=== PATIENT | male | born 1965 | race Caucasian/White ===

== ENCOUNTER 2018-04-10 10:51 | Outpatient (CLI) | payer MEDICARE, MEDICAID ==
[2018-04-10] VITALS (22 sets, daily range): BP systolic 113–144; BP diastolic 76–108
[~2018-04-10 10:51] MED LIST: NO HOME MEDS
== END 2018-04-10 23:59 | disposition home or self-care (01) ==
LOC: CARD DIAG 10:51
PROVIDERS: ATTEND Internal Medicine Cardiovascular Disease
DX: R42 Dizziness and giddiness (principal); F17.210 Nicotine dependence, cigarettes, uncomplicated
CPT/HCPCS: 93660

== ENCOUNTER 2021-02-02 09:39 | Emergency (ER) | payer MEDICARE, MEDICAID ==
[~2021-02-02] VITALS: Ht 177.8 cm; Wt 61.0 kg
[2021-02-02 09:59] VITALS: BP 124/79
[2021-02-02] MEDS ORDERED: ONDA4TAB6 PO (11:13)
[2021-02-02] MEDS ORDERED: LORA-269 PO (11:13)
== END 2021-02-02 11:23 | disposition home or self-care (01) ==
LOC: ER 09:39
DX: F10.20 Alcohol dependence, uncomplicated (principal); Z95.1 Presence of aortocoronary bypass graft; Z98.890 Other specified postprocedural states; Y90.9 Presence of alcohol in blood, level not specified
CPT/HCPCS: 99283

== ENCOUNTER 2021-02-08 16:47 | Emergency (ER) | payer MEDICARE, MEDICAID ==
[~2021-02-08] VITALS: Ht 177.8 cm; Wt 61.4 kg
[~2021-02-08 16:47] MED LIST changes: +LORA-269 PO; +ONDA4TAB6 PO
[2021-02-08] MEDS ORDERED: normal saline 1000ML IV soln IVB ONE (17:15)
[2021-02-08] MEDS ORDERED: folic acid 1mg/0.2ml inj IV ONE (17:15)
[2021-02-08] MEDS ORDERED: ondansetron/PF 4mg/2ml inj IV ONE (17:15)
[2021-02-08] MEDS ORDERED: thiamine 100mg/ml 2ml inj. IV ONE (17:15)
[2021-02-08 17:58] LABS: ALANINE AMINOTRANSFERASE 40 U/L (12-78); ALBUMIN 4.2 G/DL (3.4-5.0); ALBUMIN/GLOBULIN RATIO 1.1 (1.1-1.5); ALKALINE PHOSPHATASE 171 IU/L (46-116); ANION GAP 14 (8-16); ASPARTATE AMINO TRANSFERASE 41 U/L (10-37); BILIRUBIN,TOTAL 0.4 MG/DL (0.1-1.0); BLOOD UREA NITROGEN 10 MG/DL (7-18); BUN/CREATININE RATIO 9.8 (5.4-32.0); CALCIUM 7.9 MG/DL (8.5-10.1); CHLORIDE 105 MMOL/L (99-107); CREATININE 1.02 MG/DL (0.60-1.10); GLUCOSE 229 MG/DL (70-104); POTASSIUM 3.3 MMOL/L (3.5-5.1); SODIUM 143 MMOL/L (135-145); TOTAL CARBON DIOXIDE 23.9 MMOL/L (24-32); TOTAL PROTEIN 8.1 G/DL (6.4-8.2); eGFR 75 ML/MIN
[2021-02-08 18:01] LABS: HEMOGLOBIN 12.5 g/dl (14.0-17.9); LYMPHOCYTES # (AUTO) 2.4 X10'3 (1.1-4.8); LYMPHOCYTES % (AUTO) 8.4 % (21-51); MEAN CORPUSCULAR HGB CONC 33.7 g/dL (33.0-36.5); RED BLOOD COUNT 3.72 X10'6 (4.70-6.10)
[2021-02-08 18:03] LABS: BASOPHILS # (AUTO) 0.1 X10'3 (0-0.2); BASOPHILS % (AUTO) 0.4 % (0-1); EOSINOPHILS # (AUTO) 2.5 X10'3 (0-0.9); EOSINOPHILS % (AUTO) 8.8 % (0-6); HEMATOCRIT 37.2 % (42.0-52.0); MEAN CORPUSCULAR HEMOGLOBIN 33.7 PG (27.0-31.0); MEAN PLATELET VOLUME 7.5 FL (7.4-10.4); MONOCYTES # (AUTO) 1.6 X10'3 (0-0.9); MONOCYTES % (AUTO) 5.5 % (2-12); NEUTROPHILS # (AUTO) 22.1 X10'3 (1.8-7.7); NEUTROPHILS % (AUTO) 76.9 % (42-75); PLATELET COUNT 353 X10'3 (140-440); RED CELL DISTRIBUTION WIDTH 17.8 % (11.5-14.5)
[2021-02-08 18:09] LABS: WHITE BLOOD COUNT 28.7 X10'3 (4.5-11.0)
[2021-02-08] MEDS ORDERED: normal saline 1000ML IV soln IV ONE (18:10)
[2021-02-08 18:12] LABS: ETHANOL 0.315 GM/DL (0.0-0.010)
--- NOTE | 2021-02-08 18:13 | NUR ---
CRITICAL VALUE WBC 28.7
[2021-02-08 18:24] LABS: NUCLEATED RED BLOOD CELLS 3 /100WBC (0-0); TOTAL CELLS COUNTED 200
[2021-02-08 18:25] LABS: NEUTROPHILS % (MANUAL) 56 % (42-75)
[2021-02-08 18:26] LABS: ANISOCYTOSIS 1+; PLATELET ESTIMATE NORMAL
[2021-02-08 18:27] LABS: ELLIPTOCYTES 1+; POLYCHROMASIA FEW; SCHISTOCYTES FEW; TEAR DROP CELLS 2+
[2021-02-08 18:28] LABS: GIANT PLATELET FEW; HYPOGRANULAR PLATELETS FEW; LARGE PLATELETS FEW; TOXIC GRANULATION 1+
--- NOTE | 2021-02-09 00:23 | NUR ---
MAYRA Larios reports urine still needed from Pt. He has signed out ot Dr. Mendoza.
[2021-02-09 03:02] VITALS: BP 145/78
--- NOTE | 2021-02-09 03:19 | NUR ---
PT TO BE DISCHARGED PER DR. DANIELLE. PT WITH STABLE VS AND IS AGREEABLE TO DISCHARGE.
== END 2021-02-09 03:54 | disposition home or self-care (01) ==
LOC: ER 16:49
DX: R47.81 Slurred speech (principal); F32.9 Major depressive disorder, single episode, unspecified; F10.129 Alcohol abuse with intoxication, unspecified; R45.851 Suicidal ideations; E87.2 Acidosis; D72.829 Elevated white blood cell count, unspecified; Z91.5 Personal history of self-harm; Z79.899 Other long term (current) drug therapy; Y90.8 Blood alcohol level of 240 mg/100 ml or more
CPT/HCPCS: 36415; 80053; 80320; 83605; 84145; 84443; 85007; 85025; 87040; 96361; 96374; 96375; 99285; J2405; J3411; J3490; J7030